=== PATIENT | female | born 1950 | race Caucasian/White ===

== ENCOUNTER 2016-10-20 17:32 | Inpatient (IN) | payer MEDICARE, OTHER ==
[~2016-10-20] VITALS: Ht 165.1 cm; Wt 79.4 kg
[2016-10-20] VITALS (7 sets, daily range): BP systolic 172–233; BP diastolic 77–108; PULSE 53–63; RESP 14–18; O2SAT 95–98
[~2016-10-20 17:32] MED LIST: ALBU8.5H4 IH; ASPI325T32 PO; ATEN25TA PO; CHOL100094 PO; FLUO20CA25 PO; GABA600T2 PO; HYDR25TA4 PO; IPRA4AER IH; METH750T3 PO; MORP-32 PO; OXYC-466 PO
[2016-10-20 18:20] LABS: BASOPHILS % (AUTO) 0.4 % (0-3); EOSINOPHILS % (AUTO) 2.1 % (0-5); MONOCYTES % (AUTO) 5.9 % (4-12); Mean Corpuscular Hemoglobin 30.6 pg (27.0-35.0); Mean Corpuscular Volume 90.4 fL (81-100); NEUTROPHILS % (AUTO) 65.5 % (40-74); Platelet Count 217 bil/L (150-400)
--- NOTE | 2016-10-20 18:25 | DRSVH ---
PROCEDURE: X-RAY CHEST ONE VIEW, PORTABLE ([id number]) INDICATIONS: chest pain TECHNIQUE: One view of the chest was acquired. COMPARISON: None. FINDINGS: Surgical changes and devices: Cervical fixation hardware is partially visualized and appears grossly intact. Lungs and pleura: No pleural effusions or pneumothorax. Lungs are clear. Mediastinum: Mediastinal contours appear normal. Heart size is normal. Bones and chest wall: No suspicious bony lesions. Overlying soft tissues appear unremarkable. IMPRESSION: No acute cardiopulmonary findings. Dictated by: Shelia Espinosa M.D. on 10/20/2016 at 18:23 Approved by: Shelia Espinosa M.D. on 10/20/2016 at 18:23
[2016-10-20 18:48] LABS: Magnesium 2.1 mg/dL (1.6-2.6)
[2016-10-20 18:51] LABS: TROPONIN T < 0.010 ug/L (0.0-0.011)
[2016-10-20] MEDS ORDERED: Nitroglycerin 2% 1 Gm Ointment TOPICAL ONE (20:30)
--- NOTE | 2016-10-20 20:31 | ED.REPORT ---
HPI-Chest Pain 40 and Over Date of Service Oct 20, 2016 ED Provider: Walter Whyte DO Pt is a 66 year old female with a history of HTN, COPD, and CVA who presents to the ED complaining of tight, non-radiating, chest pain onset 12:00 today. The pt reports that the pain lasted until 18:00. She c/o associated elevated blood pressure, and headache. She denies any other symptoms. The pt denies a history of chest pain, and reports that she has not had a stress test. She admits to smoking. Per pt, she determined that her blood pressure was 239/117 at 12:00. She took 81 mg of Aspirin prior to arrival. Nursing Notes Stated Complaint: CHEST TIGHTNESS, HIGH BLOOD PRESSURE Chief Complaint: Chest Pain Nursing Notes Reviewed: Yes Allergies: Coded Allergies: No Known Allergies (Unverified , 09/15/14) Scheduled Albuterol/Ipratropium (Combivent Respimat Inhal [place]) 120 Spr/4 Gm Inhaler 1 PUFF IH BID Aspirin (Aspirin) 325 Mg Tablet 325 MG PO HS Cholecalciferol (Vitamin D3) (Vitamin D3) 1,000 Unit Tab.chew 1,000 UNIT PO QAM Fluoxetine (Fluoxetine) 40 Mg Capsule 40 MG PO QAM Gabapentin (Gabapentin) 300 Mg Capsule 900 MG PO TID Hydrochlorothiazide (Hydrochlorothiazide) 25 Mg Tablet 25 MG PO QAM Losartan Potassium (Losartan Potassium) 50 Mg Tablet 50 MG PO QAM Metoprolol Succinate ER (Metoprolol Succinate ER) 200 Mg Tab.er.24h 200 MG PO QAM Morphine Sulfate ER (Morphine Sulfate ER) 15 Mg Tablet.er 30 MG PO QAM Morphine Sulfate ER (Morphine Sulfate ER) 15 Mg Tablet.er 15 MG PO HS Daily at 1900 Ropinirole (Ropinirole) 1 Mg Tablet 1 MG PO HS Scheduled PRN Albuterol HFA (Proair HFA) 8.5 Gm Hfa.aer.ad 2 PUFFS INHALATION Q4H PRN PRN For Shortness of Breath Methocarbamol (Methocarbamol) 750 Mg Tablet 750-1,500 MG PO Q8 PRN PRN For Spasm Nicotine 21 mg/24 hr Patch (Nicotine 21 mg/24 hr Patch) 1 Each Patch.dysq 1 PATCH TRANSDERM DAILY PRN PRN NICOTINE WITHDRAWAL Polyethylene Glycol 3350 (Polyethylene Glycol 3350) 17 Gm Powd.pack 17 GM PO DAILY PRN PRN For Constipation oxyCODONE-Acetaminophen 10-325 mg (oxyCODONE-Acetaminophen 10-325 mg) 1 Each Tablet 1 TABLET PO Q4H PRN PRN For Pain Max. 5 tablets/day General Time Seen by MD: 18:32 Chief Complaint Chest pain Hx Obtained From: Patient Arrived By: Walk-in Sudden in Onset?: No Onset Occurred: 5 - 8 hours ago Symptom Duration: 5 - 8 hours Location: : Substernal Quality: Painful Severity: Current: Moderate Severity: Maximum: Moderate Recent Healthcare: Recent doctor visit Similar Sx Previous: No Past Medical History Past Medical History Notes: PCP: Dr. Celeste Alva Past Medical History Low back pain Neck pain Neuropathy HTN CVA Apr 2014 COPD apnea degenerative disk disease arthritis endocarditis Past Surgical History multiple dental surgeries surgery for endocarditis Neck fusion Reports: Tonsillectomy Reports: Back/neck surgery Family History Reviewed, not relevant Smoking History Current Every Day Smoker Social History Alcohol Use: Denies alcohol use Drug Use: THC Other Social History: Good social support, , Local resident Ambulatory Status Independent Review of Systems Respiratory: Denies: Non-productive cough, Shortness of breath Cardiovascular: Reports: Chest pain Neurologic: Reports: Headache Complete sys rev & neg: except as marked. Physical Exam Initial Vital Signs Vital Signs (First) Date Time Temp Pulse Resp B/P Pulse Ox O2 Delivery O2 Flow Rate FiO2 10/20/16 17:37 36.6 63 15 207/92 97 Room Air Initial VS: Reviewed Head / Eyes: Atraumatic Neck: Supple, Full range of motion Extremities: Vascular intact, Neuro intact Skin: Warm, Dry, No cyanosis Neurologic: Alert, Oriented, Nonfocal Psychiatric: Mood/affect normal, Behavior normal General/Constitutional: Awake, Alert, Cooperative, Not toxic appearing Respiratory / Chest: Atraumatic, Breath sounds NL, Breath sounds = bilat Cardiovascular: Heart rate NL, Regular rhythm, Heart sounds NL Hypotensive Abdomen: Atraumatic, Soft, Non-tender Interpretation & Diagnostics Lab Results Interpretation Result Diagram: 10/20/16181210/20/161812 Test 10/20/16 18:13 White Blood Count 9.2th/mm3 (3.8-10.1) Red Blood Count 5.40mil/mm3 (3.90-5.20) Hemoglobin 16.5g/dL (12.0-15.6) Hematocrit 48.8% (35.0-46.0) Mean Corpuscular Volume 90.4fL (81-100) Mean Corpuscular Hemoglobin 30.6pg (27.0-35.0) Mean Corpuscular Hemoglobin Concent 33.8% (32.0-37.0) Red Cell Distribution Width 13.3% (12.3-15.4) Platelet Count 217bil/L (150-400) Neutrophils (%) (Auto) 65.5% (40-74) Lymphocytes (%) (Auto) 25.8% (14-46) Monocytes (%) (Auto) 5.9% (4-12) Eosinophils (%) (Auto) 2.1% (0-5) Basophils (%) (Auto) 0.4% (0-3) Sodium Level 141mEq/L (134-144) Potassium Level 4.0mEq/L (3.5-5.2) Chloride Level 97mEq/L (97-108) Carbon Dioxide Level 29mmol/L (18-29) Blood Urea Nitrogen 7mg/dL (8-27) Creatinine 0.55mg/dL (0.57-1.00) Estimat Glomerular Filtration Rate 159mL/min (>59) Glucose Level 124mg/dL (60-99) Calcium Level 9.9mg/dL (8.5-10.1) Magnesium Level 2.1mg/dL (1.6-2.6) Total Bilirubin 0.4mg/dL (0.0-1.2) Aspartate Amino Transf (AST/SGOT) 37U/L (0-50) Alanine Aminotransferase (ALT/SGPT) 43U/L (0-32) Alkaline Phosphatase 70U/L (25-165) Total Protein 8.1g/dL (6.4-8.4) Albumin 4.4g/dL (3.4-5.0) Hold Stallings Top Tube Received (Received) ECG Interpretation ECG Interpretation: Sinus rhythm with a rate of 58 Probable left atrial enlargement. Time: 17:48 Interpreted by: ED physician X-Ray Chest Interpretation Chest Xray Interpretation: IMPRESSION: No acute cardiopulmonary findings. Dictated by: Shelia Espinosa M.D. on 10/20/2016 at 18:23 View: Portable, 1 view Interpretation / Wet Read by: Interpret - Radiologist Re-Eval/Medical Decision Med Decision/Clinical Course Patient presents with markedly hypertension and associated chest pain. Her symptoms are not consistent with aortic dissection. She was treated with IV nitrates, IV MCKINLEY inhibitor and blood pressure came down nicely the pain was resolved. Taking to count her symptomatology and uncontrolled blood pressure from being admitted to progressive care unit for rule out protocol and good blood pressure management. Source of Hx: Old records Time of Eval: 19:00 Patient Status: Condition improved Re-Evaluation/Progress Note: Pt rechecked. Informed pt of plan for admission. Pt understands and agrees with plan for admission. All questions were answered. Consultation : Referral / Consult Name: Janet Valero DO Consulted With: Hospitalist Call Returned at: 22:58 Special Education Kindergarten Teacher: Will see patient, Agrees with eval, Agrees with plan, Accepts admit Counseled Regarding: Diagnosis, Lab results, Need for admission Discharge & Departure Primary Impression: Hypertensive emergency Additional Impression: Chest pain Chest pain type: unspecified Qualified Code: R07.9 - Chest pain, unspecified Disposition: ADMITTED TO HOSPITAL Discharge Condition All VS Reviewed: Yes Condition: Stable Referrals: Celeste Alva MD (PCP) Huma Attestation Portions of this note were transcribed by Marcie Gooden. I, Dr. Whyte personally performed the history, physical exam and medical decision-making; I reviewed and confirmed the accuracy of the information in the transcribed note. Signed by: Huma Monahan, 10/20/16 and 20:50. copies to: Celeste Alva MD, Todd P DO Oct 20, 2016 20:31 Marcie Gómez Oct 20, 2016 20:32
[2016-10-20] MEDS ORDERED: LOSA50TA37 PO (23:39)
[2016-10-20] MEDS ORDERED: ASPI325T32 PO (23:39)
[2016-10-20] MEDS ORDERED: ROPI1TAB3 PO (23:39)
[2016-10-20] MEDS ORDERED: CHOL10008 PO (23:40)
[2016-10-20] MEDS ORDERED: ALBU8.5H2 INHALATION (23:40)
[2016-10-20] MEDS ORDERED: GABA-502 PO (23:42)
[2016-10-20] MEDS ORDERED: METO200T32 PO (23:42)
[2016-10-20] MEDS ORDERED: FLUO40CA PO (23:43)
[2016-10-20] MEDS ORDERED: NICO1PAT16 TRANSDERM (23:43)
--- NOTE | 2016-10-20 23:43 | PCM.HPMED ---
Subjective Date of Service Oct 20, 2016 Primary Provider: Admitting Physician: Janet Valero DO Primary Care Physician: Celeste Alva MD Attending Physician: Janet Valero DO Admit Status: From the Emergency Department Chief Complaint: Headedness, Substernal Chest pain/tightness/high blood pressure History of Present Illness: Pt is a pleasant 66 Y/O Fwith a history of HTN, COPD, chronic neck and low back pain status post multiple surgical procedures and now chronically habituated on opiate medication, and history of tobacco use disorder, history of prior CVA in April 2014. Patient presented to the urgency department complaining of tight , non-radiating, chest pressure onset approximately 2:30 PM today. The pt reports that the pain lasted until 18:00. She states her initial symptoms began as a sensation of the onset of a migraine. Patient states she never actually had a headache however she did become lightheaded and felt foggy. Patient's chest pressure presented. Of note patient states that she has been falling out of bed for the past 6 months and does not know why. Of note patient is on multiple chronic opiate medications including oxycodone 10-325 milligrams morphine ER 30 mg in the morning and 15 mg at night as well as Flexeril. Patient states she was last seen by her primary care physician Dr. Alva on Wednesday. She endorses a history of whitecoat hypertension. She states that she was in the [facility] clinic today to be evaluated for a medical marijuana card given her chronic back pain issues. While at the [facility] clinic she was found to have an elevated blood pressure and was told to go to the ED. Patient states that she had blood pressure of 239 systolic at the [facility] clinic. She took a 81 mg aspirin at that time. In the ED patient's blood pressure were also in the 200s systolic. Patient was given a single dose of enalapril 1.25 milligrams IV. Draw her blood pressures down. Patient states that she is compliant on her blood pressure medications. She reports that she was at physical therapy on Wednesday and had been complaining of weakness in her lower extremity and dizziness since that time. Patient states that she often becomes dizzy and weak in the legs after physical therapy. Patient denies slurred speech, nausea, vomiting, vision changes, focal weakness, facial droop, recent increased social stressors. Patient never had a history of cardiac stress test. Patient denies prior history of chest pain. In the ED temperature was 36.6, pulse 63, respiratory rate 15, blood pressure 233/105, 95-97% on room air Patient was started on medication enalapril 1.25 milligrams IV once Patient was given aspirin 162 mg once Patient was given nitroglycerin paste 1 inch once with resolution of her chest pain. Hemogram showed the PVCs 9.2, H/H 16.5/48.8, platelet count 217, PMNs 65%, lymphs 25% Chemistry panel showed: Glucose 124, ALT of 43, AST of 37 otherwise normal. Chemistry panel Patient's troponin was 0.010, at 1813 on day of admit. CXR showed no acute cardiopulmonary process EKG was sinus rhythm with a rate of 58 and probable left atrial enlargement as read by the ED physician Review of Systems: A comprehensive review of systems was conducted and was negative except as mentioned in history of present illness. Allergies Coded Allergies: No Known Allergies (Unverified , 09/15/14) Home Medications Requip 1 mg tablet by mouth 1-3 hours before bedtime Losartan 50 mg tablet daily Fluoxetine 40 mg tablet daily for depression Qvar beclomethasone dipropionate, inhaled 2 puffs 2 times every day Combivent 36168 micrograms ipratropium albuterol inhaler inhale 1 by mouth 4 times daily Nicotine patch 21 mg daily for tobacco cessation Hydrochlorothiazide 25 mg daily Gabapentin 3 mg take 3 capsules by mouth 3 times daily Metoprolol succinate ER 200 mg tablet, take 1 tablet daily Aspirin 325 mg daily Vitamin D 1000 units daily Methocarbamol 1-2 tablets every 8 hours as needed for muscle spasm Morphine ER 15 mg takes 2 tablets by mouth every morning, and 1 tablet every evening Percocet 10/325 mg tablets 1 tablet every 4 hours Max 5 tablets per day when necessary MiraLAX 17 g by mouth a analysis water when necessary PMH PCP: Dr. Celeste Alva Low back pain Neck pain Neuropathy HTN CVA Apr 2014 COPD apnea degenerative disk disease arthritis endocarditis Surgical History multiple dental surgeries surgery for endocarditis Neck fusion Reports: Tonsillectomy Reports: Back/neck surgery Family History Mom with coronary artery disease, history of A. fib, and stroke now Social History Hx Alcohol Use: No Hx Substance Use: Yes (WEED) Hx Tobacco Use: Yes Smoking Status: Current Every Day Smoker (smoked half a pack per day 52 years) Living Arrangement: with Family (this with Xu at home phone number [phone]) Exam Vital Signs Vital Sign - Last Date Time Temp Pulse Resp B/P Pulse Ox O2 Delivery O2 Flow Rate FiO2 10/20/16 23:02 54 18 172/101 95 Room Air 10/20/16 17:37 36.6 Exam General: Alert and oriented 3, speaking in full sentences, in no acute distress , resting comfortably in bed. HEENT: NC/AT, eyes, PERRLA, EOMI, neck, soft supple, no adenopathy, no JVD, no masses, no thyromegaly, throat mucous membranes pink and moist, no erythema, no exudates, no tonsillar swelling, no uvular deviation. Patient is edentulous Lungs: Bilateral crackles present from midlung field to base bilaterally no use of accessory muscles of respiration, good air movement, good respiratory effort. Heart: Regular rate and rhythm, no murmur, S1-S2 present, no rub, no click, no distant heart sounds, Abdomen: Soft, nontender, nondistended, bowel sounds active, no rebound, no guarding, Genitourinary: no suprapubic tenderness, no Chambers catheter, Extremities: Muscle strength, 5 out of 5 upper/lower extremity and symmetric laterally, pulses equal and symmetric upper/lower extremity, upper extremity pulses bounding, signs of edema Neurologic: Cranial nerves II through XII Grossly intact bilaterally, speaking in full sentences, no focal neurological signs. Skin: Dry and intact without rash, nicotine stains on the fingers Psychiatric: Mood is cheerful and mood and affect are congruent and appropriate. Lab and Diagnostics Result Diagram: 10/20/16181210/20/161812 X-Rays, CTs and MRIs Date of Service: 10/20/16 1740 PROCEDURE: X-RAY CHEST ONE VIEW, PORTABLE INDICATIONS: chest pain Surgical changes and devices: Cervical fixation hardware is partially visualized and appears grossly intact. Lungs and pleura: No pleural effusions or pneumothorax. Lungs are clear. Mediastinum: Mediastinal contours appear normal. Heart size is normal. Bones and chest wall: No suspicious bony lesions. Overlying soft tissues appear unremarkable. IMPRESSION: No acute cardiopulmonary findings. Dictated by: Shelia Espinosa M.D. on 10/20/2016 at 18:23 Approved by: Shelia Espinosa M.D. on 10/20/2016 at 18:23 Assessment & Plan This is a pleasant 66-year-old female history of hypertension COPD and prior history of CVAs who presented with acute onset hypertensive emergency and lightheadedness to the ED. Patient was admitted for acute hypertensive emergency and acute coronary syndrome rule out. # Acute Coronary Syndrome/OR, Present on Admission -Presented with acute onset substernal chest pressure and tightness since 1200 hrs. today on day of admit. -Patient was given aspirin 162 mg once -Patient was given nitroglycerin paste 1 inch once with resolution of her chest pain. -Hemogram showed the WBC 9.2, H/H 16.5/48.8, platelet count 217, PMNs 65%, lymphs 25% -Chemistry panel showed: Glucose 124, ALT of 43, AST of 37 otherwise normal. Chemistry panel -CXR showed no acute cardiopulmonary process -EKG was sinus rhythm with a rate of 58 and probable left atrial enlargement as read by the ED physician -Troponin 0.010 in the ED, we will repeat troponins 2 -Stress testing in the a.m. -O2 Sats keep > 94% -IV fluids as needed -Start Metoprolol -Start Lisinopril -Type medication Atorvastatin -Morphine for pain control -Nitro SL, Nitro Cle[place], Nitro Paste (PRN) -Aspirin 325mg -Continuous Cardiac Monitoring/BP monitoring -Labs (Lipid Panel, CBC, CMP, PT/PTT/INR) -Milk of magnesia as, IV Protonix rated -NPO for now # Hypertensive emergency, present on admission, active - She reports elevated blood pressure with associated headache and chest pain - Patient states that she took her blood pressure home and was 239/117 at 12 noon today, patient took a 81 mg aspirin prior to presentation to the ED. - In the ED temperature was 36.6, pulse 63, respiratory rate 15, blood pressure 233/105, 95-97% on room air - We will continue home medications Losartan 50 mg tablet daily - Continue home medication Metoprolol succinate ER 200 mg tablet, take 1 tablet daily - Continue home medication Hydrochlorothiazide 25 mg daily - Patient was given enalaprilat 1.25 mg once in the ED - We will repeat enalaprilat 1.25 mg now and every 6 hours when necessary for blood pressure control with threshold of 180 greater systolic - We will lower her blood pressure cautiously being careful not to over correct - We will plan to transfer patient to ccu status or blood pressure control with IV drip if blood pressure continues to increase despite current medical intervention Chronic problems # Current tobacco smoker -Continue Nicotine patch 21 mg daily for tobacco cessation #Chronic neck and Low back pain, presumed stable -Patient has history of degenerative disc disease -Methocarbamol 1-2 tablets every 8 hours as needed for muscle spasm -Morphine ER 15 mg takes 2 tablets by mouth every morning, and 1 tablet every evening -Percocet 10/325 mg tablets 1 tablet every 4 hours Max 5 tablets per day when necessary #HTN Home medications continued as previously stated #History of CVA Apr 2014 #COPD Continue home medication Qvar beclomethasone dipropionate, inhaled 2 puffs 2 times every day Combivent ipratropium albuterol inhaler inhale 1 by mouth 4 times daily #Depression -Continue Fluoxetine 40 mg tablet daily for depression #Sleep apnea -Currently compliant on her CPAP #arthritis #History of endocarditis, presumed stable #Neuropathic pain - Continue Gabapentin 3 mg take 3 capsules by mouth 3 times daily - Requip 1 mg tablet by mouth 1-3 hours before bedtime Disposition: Admitted to in patient service with expected length of stay greater than 2 days, secondary to severity of presenting symptoms, treatment plan, complexity of clinical work up, and risk of adverse events. CODE STATUS: Full code PCP: PCP: Dr. Celeste Alva DVT PE prophylaxis: SCD's/SubQ heparin Q8H Contact: Xu [phone] Attending Statement The patient was seen and examined together with house staff on 10/21/2016 and I agree with the history, exam and plan as outlined in the note above. Merlin Baker DO Oct 20, 2016 23:43 Janet Valero DO Oct 21, 2016 04:19
[2016-10-20] MEDS ORDERED: POLY17PO2 PO (23:44)
[2016-10-21] VITALS (14 sets, daily range): BP systolic 132–223; BP diastolic 67–100; PULSE 54–73; RESP 14–20; O2SAT 92–98
[2016-10-21] MEDS ORDERED: Alum-Mag Hydrox-Simeth 30 mL Suspension PO PRN
[2016-10-21] MEDS ORDERED: Senna-Docusate 8.6-50 mg Tablet PO PRN
[2016-10-21] MEDS ORDERED: Ondansetron 2 mg/mL 2 mL Inj IVPUSH PRN
[2016-10-21] MEDS ORDERED: 0.9% Sodium Chloride 1,000 ML IV SCH
[2016-10-21] MEDS: Sodium Chloride LOK Flush 10 mL Syringe IVFLUSH SCH ×3 (01:05→15:43)
[2016-10-21] MEDS ORDERED: Polyethylene Glycol (PEG) 17 Gm Powder PO PRN ×2 (01:20)
[2016-10-21] MEDS ORDERED: oxyCODONE-Acetamin 10-325 mg Tablet PO PRN (01:20)
--- NOTE | 2016-10-21 02:45 | NUR ---
Admit to room 3017 @00:30 with Hypertension. A&Ox3, pain /10, VS 36.7temp 197/90 54p, O2 sat 95% on RA. Oriented to room and POC on whiteboard. Non-slip socks on for safety, RADHA risk with broken cpap at home, future sleep study planned in October and upgrade to new CPAP machine. Cpox and scd's on patient.
--- NOTE | 2016-10-21 04:14 | NUR ---
O2 Saturation desat <90% during sleep, placed on 1L O2 will continue to monitor. O2 saturation currently 95%.
--- NOTE | 2016-10-21 04:43 | NUR ---
Transfer to room 2018 via bed, all belongings accounted for, report given to Yasemin Vera @04:30.
[2016-10-21 04:52] LABS: APPEARANCE,URINE SLIGHTLY CLOUDY (CLEAR,HAZY); COLOR,URINE YELLOW (YELLOW)
[2016-10-21 04:53] LABS: OCCULT BLOOD,URINE TRACE (NEGATIVE); UROBILINOGEN,URINE NORMAL (NORMAL)
[2016-10-21] MEDS: NiCARdipine Inj 25 MG in Dextrose 5% 240 ML IV SCH ×4 (05:22→19:25)
--- NOTE | 2016-10-21 06:17 | NUR ---
Transferred from [facility] to CCU 2017. A/O. c/o ARGUELLO 07/03. Denies dyspnea, N/V. Tele SB. BP 200s/80-100s. Starting nicardipine drip.
[2016-10-21] MEDS: oxyCODONE-Acetamin 10-325 mg Tablet PO PRN ×2 (06:24→11:56)
[2016-10-21 08:10] LABS: TROPONIN T < 0.010 ug/L (0.0-0.011)
[2016-10-21] MEDS ORDERED: MeTOProlol XL 50 mg ER24 Tablet PO SCH (08:30)
[2016-10-21] MEDS: Morphine ER 15 mg (MS Contin) Tablet PO SCH (08:38)
[2016-10-21] MEDS: Heparin 5,000 Unit/mL Inj SUBQ SCH ×2 (08:39→15:39)
[2016-10-21] MEDS: MeTOProlol XL 50 mg ER24 Tablet PO SCH (09:50)
--- NOTE | 2016-10-21 14:49 | PCM.PNMED ---
Subjective Date of Service Oct 21, 2016 Subjective Overnight the patient was transferred to the ICU due to the need for a nicardipine drip to control her blood pressure as it was in the 200's systolic and 80-100 diastolic. This morning the patient is lying in bed in no acute distress and her BP is responding to the nicardipine drip. She reports feeling better than yesterday and denies any headache, dizziness, sore throat, chest pain, nausea. She is ambulating around her room without difficulty. Exam Vital Signs Vital Sign - Last Date Time Temp Pulse Resp B/P Pulse Ox O2 Delivery O2 Flow Rate FiO2 10/21/16 12:56 37.5 73 20 147/96 95 Nasal Cannula 2.00 Intake and Output 10/20/16 10/20/16 10/21/16 Cumulative From/Thru 15:00 23:00 07:00 10/20/16 17:37 - 10/21/16 06:16 Intake Total 363 ml 363 ml Output Total 850 ml 850 ml Balance -487 ml -487 ml Intake IV Total 363 ml 363 ml Output Urine Total 850 ml 850 ml # Voids 2 2 # Bowel Movements 0 0 Exam General: No acute distress, well-developed, well-nourished, appropriately interactive HEENT: NCAT. PERRLA, EOMI. Mucous membranes are pink and moist Neck: Supple with full ROM. No JVD, lymphadenopathy or thyromegaly noted Cardiovascular: RRR with no murmurs/rubs/gallops. Normal S1/S2 without rubs or clicks. Pulmonary: Normal inspiratory effort with intermittent crackles at the lung bases bilaterally. No wheezing/rales/rhonchi Abdomen: Soft, nontender, nondistended. No rebound, guarding, or organomegaly. Bowel sounds present throughout Extremities: Pulses intact and normal bilaterally in both UE and LE, no cyanosis /clubbing. Skin: Dry without rashes or bruising, fingers stained from nicotine use Neurological: A&Ox3. CN 2-12 intact, full muscle strength in all extremities. Left digits 1-3 numb from previous CVA Psychiatric: Normal mood and affect, responds appropriately IVs and Medications Medications Reviewed: Medications were reviewed in detail Lab and Diagnostics Result Diagram: 10/20/16181210/20/161812 X-Rays, CTs and MRIs Date of Service: 10/20/16 1740 PROCEDURE: X-RAY CHEST ONE VIEW, PORTABLE INDICATIONS: chest pain Surgical changes and devices: Cervical fixation hardware is partially visualized and appears grossly intact. Lungs and pleura: No pleural effusions or pneumothorax. Lungs are clear. Mediastinum: Mediastinal contours appear normal. Heart size is normal. Bones and chest wall: No suspicious bony lesions. Overlying soft tissues appear unremarkable. IMPRESSION: No acute cardiopulmonary findings. Dictated by: Shelia Espinosa M.D. on 10/20/2016 at 18:23 Approved by: Shelia Espinosa M.D. on 10/20/2016 at 18:23 Assessment & Plan This is a pleasant 66-year-old female history of hypertension COPD and prior history of CVAs who presented with acute onset hypertensive emergency and lightheadedness to the ED. Patient was admitted for acute hypertensive emergency and acute coronary syndrome rule out. Acute Coronary Syndrome/MT, Present on Admission, improved -Patient reports chest pain resolved last night -CXR negative -EKG was sinus rhythm with a rate of 58 and probable left atrial enlargement -Troponin negative x2, one more ordered for AM -Consider cardiology consult as outpatient as her chest pain has resolved ( negative troponin, no EKG changes) with better BP control Hypertensive emergency, present on admission, resolved - Cessation of chest pain when BP is not elevated - Pt weaned off nicardipine drip this morning, maintaining pressures in the 140- 150 -Changes to her home HTN regimen are as follows: HCTZ from 25mg to 12.5mg Losartan to 100mg from 50mg Metoprolol from 200mg from 100mg Added amlodipine 5mg -Will continue to monitor BP overnight HTN, chronic, present on admission, improved -Continue adjusted home regimen as above History of CVA in 04/2014 -Lipid panel reveals high LDL (129) and total cholesterol (210) -Continue Atorvastatin 40mg qHS COPD, present on admission, stable -Continue Qvar and Combivent inhalers Tobacco Use Disorder, present on admission, stable -Current half pack per day smoker -Continue Nicotine patch 21 mg daily -Counseled on cessation options and benefits Chronic neck and Low back pain, present on admission, stable -Patient has history of degenerative disc disease, neck fusion -Continue home regimen as follows: Methocarbamol 1-2 tablets every 8 hours as needed for muscle spasm Morphine ER 15 mg takes 2 tablets by mouth every morning, and 1 tablet every evening Percocet 10/325 mg tablets 1 tablet every 4 hours Max 5 tablets per day when necessary Depression -Continue Fluoxetine 40 mg tablet daily for depression Sleep apnea -Currently compliant on her CPAP #arthritis #History of endocarditis, presumed stable #Neuropathic pain - Continue Gabapentin 3 mg take 3 capsules by mouth 3 times daily - Requip 1 mg tablet by mouth 1-3 hours before bedtime Disposition: Patient likely ready for discharge home in 1-2 days dependent on the responsiveness of her blood pressure to the current treatment plan. It may be beneficial to have her see her PCP as soon as she can for a full medication review in an attempt to prevent the dizzy spells in the morning when at home. Pain Evaluation: Adequate Pain Control VTE Mechanical Devices: Intermittant Pneumatic CD Attending Statement The patient was seen and examined together with Dr. Clay on 10/21/2016 and I agree with the history, exam and plan as outlined in the note above. . copies to: Celeste Alva MD, Jeffery S DO Oct 21, 2016 14:48 Roger Hinojosa MD Oct 23, 2016 05:57 #History of endocarditis, presumed stable #Neuropathic pain - Continue Gabapentin 3 mg take 3 capsules by mouth 3 times daily - Requip 1 mg tablet by mouth 1-3 hours before bedtime Disposition: Admitted to in patient service with expected length of stay greater than 2 days, secondary to severity of presenting symptoms, treatment plan, complexity of clinical work up, and risk of adverse events. CODE STATUS: Full code PCP: PCP: Dr. Celeste Alva DVT PE prophylaxis: SCD's/SubQ heparin Q8H Contact: Xu [phone] VTE Mechanical Devices: Intermittant Pneumatic CD Ronaldo Clay DO Oct 21, 2016 14:48
--- NOTE | 2016-10-21 15:18 | NUR ---
Social Work Note: Initial Assessment Data& Assessment: EMR reviewed. SW met with pt and pt at bedside to discuss discharge planning, SW role explained. Gina Monzon is a 66 year old female admitted on 10/20/2016 for hypertensive emergency and chest pain. Pt has Medicare insurance coverage and sees Celeste Alva MD for primary care. Pt lives in [place] with her spouse and is independent at baseline with all ADL's. Pt owns a wheelchair, walker and cane that used to belong to her mother, but only uses the cane when she feels dizzy. Pt does not have HH hx. Pt has been to a SNF for IV abx in the . Pt drives. Pt does not have LTC insurance or VA benefits. Pt provided with DPOA/Advance Directive paperwork to review and complete when possible. Pt to transport pt home when medically ready. Pt and pt denies any needs at this time. SW to continue to follow. Plan: Anticipated discharge home via POV when medically ready. Pt and pt denies any needs at this time. SW to continue to follow. ROSALINE Christian Addendum: 10/21/16 at 1522 by ABIGAIL HAWK Amended: Links added.
--- NOTE | 2016-10-21 16:47 | NUR ---
nicardipine off/plan/o2/BM/pain nicardipine off at 1000, pt loly well. MD's are adjusting po antihypertensives. Tolerating 2L NC well, uses 2L at home. XXL formed BM today. Pt required only one dose of prn pain medication today. Addendum: 10/21/16 at 1913 by PRISCILLA FERNANDO RN 1800 pt transfered to [facility]
[2016-10-21] MEDS ORDERED: Morphine ER 15 mg (MS Contin) Tablet PO SCH (21:00)
[2016-10-21] MEDS ORDERED: hydrALAZINE 20 mg/mL Inj IV ONE (23:25)
[2016-10-22] VITALS (8 sets, daily range): BP systolic 125–195; BP diastolic 63–86; PULSE 73–80; RESP 16–22; O2SAT 93–98
[2016-10-22] MEDS ORDERED: NiCARdipine Inj 25 MG in Dextrose 5% 240 ML IV SCH (00:25)
[2016-10-22] MEDS: Sodium Chloride LOK Flush 10 mL Syringe IVFLUSH SCH ×2 (00:30→13:29)
[2016-10-22] MEDS: Heparin 5,000 Unit/mL Inj SUBQ SCH ×3 (00:35→13:37)
--- NOTE | 2016-10-22 00:40 | NUR ---
BP 130-160 systolic beginning of this shift, BP gemma to 180's-200's systolic. Hydralazine 10 mg IVP given x1 with ineffective results. Per MD, pt to restart nicardipine drip, transfer orders to CCU received and report given to RN by this comic book writer.
[2016-10-22] MEDS: NiCARdipine Inj 25 MG in Dextrose 5% 240 ML IV SCH ×3 (01:04→10:25)
[2016-10-22] MEDS: oxyCODONE-Acetamin 10-325 mg Tablet PO PRN ×2 (01:17→08:26)
[2016-10-22 03:15] LABS: BASOPHILS % (AUTO) 0.5 % (0-3); EOSINOPHILS % (AUTO) 1.6 % (0-5); MONOCYTES % (AUTO) 6.6 % (4-12); Mean Corpuscular Hemoglobin 30.3 pg (27.0-35.0); Mean Corpuscular Volume 89.9 fL (81-100); NEUTROPHILS % (AUTO) 65.9 % (40-74); Platelet Count 202 bil/L (150-400)
[2016-10-22 04:29] LABS: TROPONIN T 0.01 ug/L (0.0-0.011)
--- NOTE | 2016-10-22 04:46 | NUR ---
P: SBP 190-200s I: nicardipine drip E: Transferred from PCU status to CCU at 0030 to restart nicardipine drip. Nicardipine starting at 5mg/hr per protocol and now at 2mg/hr w/ SBP 120-140s. Tele SR. A/O. c/o mid back pain, 10/03. Percocet resolved pain. c/o dry mouth. Encourage use of mouth moisturizer. Exertional dyspnea when up to BSC. 2L NC to keep sats > 92% when dozing. Dose for period of time now watching tv.
[2016-10-22] MEDS: Morphine ER 15 mg (MS Contin) Tablet PO SCH (08:28)
[2016-10-22] MEDS: MeTOProlol XL 50 mg ER24 Tablet PO SCH (08:30)
--- NOTE | 2016-10-22 13:33 | PCM.DIMED ---
Ronaldo Clay DO 10/22/16 1333: Discharge Instructions Date of Service Oct 22, 2016 Dates of Hospitalization Oct 20, 2016 at 23:20 Discharge Diagnosis Discharge Diagnosis Acute Coronary Syndrome/IA Hypertensive emergency HTN History of CVA in 04/2014 COPD Tobacco Use Disorder Chronic neck and Low back pain Depression Sleep apnea Neuropathic pain Medication Instructions Additional med instructions Your blood pressure medications are as follows: Take your HCTZ 12.5mg and 100mg metoprolol in the mornings. Take your amlodipine 5mg, losartan 100mg, and 100mg metoprolol at night. Follow up with Dr. Alva with the recordings of your blood pressure cuff within the next week. Diet Discharge Diet: Low fat, Low Sodium Activity Discharge Activity: No restrictions Call your provider Call your provider for: Shortness of breath, Bleeding, Chest pain, Weakness ( unilateral), Other (vision changes, dizziness, lightheadedness) Patient Instructions Patient Instructions Take your new blood pressure regimen outlined above. Follow up with Dr. Alva within a week with your blood pressure results to see if further changes need to be made. Follow-up Provider: Celeste Alva MD Follow-up with PCP in: 1 week (BP check, possible HTN regimen change) Roger Hinojosa MD 10/23/16 0557: Discharge Instructions Attending's Statement The patient was seen and examined together with Dr. Clay on 10/22/2016 and I agree with the history, exam and plan as outlined in the note above. . Ronaldo Clay DO Oct 22, 2016 13:33 Roger Hinojosa MD Oct 23, 2016 05:57
[2016-10-22] MEDS ORDERED: LOSA50TA3 PO (13:43)
[2016-10-22] MEDS ORDERED: HYDR25TA4 PO (13:43)
[2016-10-22] MEDS ORDERED: METO100T3 PO (13:43)
[2016-10-22] MEDS ORDERED: AMLO5TAB2 PO (13:43)
--- NOTE | 2016-10-22 13:45 | NUR ---
Discharge Discharged in satisfactory status with VVS, A&Ox3, steady on feet. IV dcd intact. Discharge instructions, prescriptions reviewed in detail w/ pt & Spouse; all belongings in care of Spouse. To waiting vehicle via w/c, accompanied by [facility] staff & Spouse.
--- NOTE | 2016-10-22 13:52 | NUR ---
Improving status BP currently 153/82, HR 73, sinus rhythm. A&Ox3, pleasant 7 cooperative. Currently states is free of chronic back-neck pain, after percocet & MS Contin.
--- NOTE | 2016-10-22 15:35 | PCM.DC.MED ---
Discharge Summary Date of Service Oct 22, 2016 Dates of Hospitalization Date of Hospital Admission Oct 20, 2016 at 23:20 Date of Discharge: Oct 22, 2016 Providers: Admitting Physician: Roger Hinojosa MD Primary Care Physician: Celeste Alva MD Attending Physician: Roger Hinojosa MD Diagnosis at Time of Discharge Diagnosis at Time of Discharge Acute Coronary Syndrome/MT Hypertensive emergency HTN History of CVA in 04/2014 COPD Tobacco Use Disorder Chronic neck and Low back pain Depression Sleep apnea Neuropathic pain Procedures XRay, CTs & MRIs Date of Service: 10/20/16 1740 PROCEDURE: X-RAY CHEST ONE VIEW, PORTABLE INDICATIONS: chest pain Surgical changes and devices: Cervical fixation hardware is partially visualized and appears grossly intact. Lungs and pleura: No pleural effusions or pneumothorax. Lungs are clear. Mediastinum: Mediastinal contours appear normal. Heart size is normal. Bones and chest wall: No suspicious bony lesions. Overlying soft tissues appear unremarkable. IMPRESSION: No acute cardiopulmonary findings. Dictated by: Shelia Espinosa M.D. on 10/20/2016 at 18:23 Approved by: Shelia Espinosa M.D. on 10/20/2016 at 18:23 Brief History Pt is a pleasant 66 Y/O Fwith a history of HTN, COPD, chronic neck and low back pain status post multiple surgical procedures and now chronically habituated on opiate medication, and history of tobacco use disorder, history of prior CVA in April 2014. Patient presented to the urgency department complaining of tight , non-radiating, chest pressure onset approximately 2:30 PM today. The pt reports that the pain lasted until 18:00. She states her initial symptoms began as a sensation of the onset of a migraine. Patient states she never actually had a headache however she did become lightheaded and felt foggy. Patient's chest pressure presented. Of note patient states that she has been falling out of bed for the past 6 months and does not know why. Of note patient is on multiple chronic opiate medications including oxycodone 10-325 milligrams morphine ER 30 mg in the morning and 15 mg at night as well as Flexeril. Patient states she was last seen by her primary care physician Dr. Alva on Wednesday. She endorses a history of whitecoat hypertension. She states that she was in the [facility] clinic today to be evaluated for a medical marijuana card given her chronic back pain issues. While at the [facility] clinic she was found to have an elevated blood pressure and was told to go to the ED. Patient states that she had blood pressure of 239 systolic at the [facility] clinic. She took a 81 mg aspirin at that time. In the ED patient's blood pressure were also in the 200s systolic. Patient was given a single dose of enalapril 1.25 milligrams IV. Draw her blood pressures down. Patient states that she is compliant on her blood pressure medications. She reports that she was at physical therapy on Wednesday and had been complaining of weakness in her lower extremity and dizziness since that time. Patient states that she often becomes dizzy and weak in the legs after physical therapy. Patient denies slurred speech, nausea, vomiting, vision changes, focal weakness, facial droop, recent increased social stressors. Patient never had a history of cardiac stress test. Patient denies prior history of chest pain. The patient was admitted but was moved to the ICU due to increasing blood pressures that required a nicardipine drip overnight. Her BP improved and the nicardipine drip was weaned off, with her IV medications changed to PO as she transitioned out of the ICU. She maintained acceptable BP throughout the day with her changed BP regimen (HCTZ 25 --> 12.5mg, Losartan 50 --> 100mg, Metoprolol 200 --> 100 due to bradycardia, added amlodipine 5 mg). During the night however her BP spiked again with no response to IV hydralazine and she was put back into the ICU on the nicardipine drip. After her BP fell to a more appropriate level, she was again transitioned to the above PO regimen with plans to discharge with close follow up. Her brought her a BP cuff and she will do twice daily reads on her new regimen and follow up with her PCP within a week. Hospital Course This is a pleasant 66-year-old female history of hypertension COPD and prior history of CVAs who presented with acute onset hypertensive emergency and lightheadedness to the ED. Patient was admitted for acute hypertensive emergency and acute coronary syndrome rule out. Chest pain, present on admission. Resolved. -Likely secondary to hypertensive urgency -Patient reports chest pain resolved -CXR negative -EKG was sinus rhythm with a rate of 58 and probable left atrial enlargement -Troponin negative x3 -Primary to consider cardiology consult as outpatient as her chest pain has resolved (negative troponin, no EKG changes) with better BP control Hypertensive urgency, present on admission, resolved - No of chest pain when BP is not elevated - Pt weaned off nicardipine drip morning of discharge (10/22/2016), maintaining pressures in the 140-150 -Changes to her home HTN regimen are as follows: HCTZ from 25mg to 12.5mg Losartan to 100mg from 50mg to take at night Metoprolol from 200mg from 100mg, one in the morning and one in the evening Added amlodipine 5mg in the evening -Patient bought blood pressure cuff and will keep readings when following up with primary care doctor HTN, chronic, present on admission, improved -Continue adjusted home regimen as above -Has follow up appointment with PCP and blood pressure cuff to determine need for further medication changes History of CVA in 04/2014 -Lipid panel reveals high LDL (129) and total cholesterol (210) -Continue Atorvastatin 40mg qHS COPD, present on admission, stable -Continue Qvar and Combivent inhalers Tobacco Use Disorder, present on admission, stable -Current half pack per day smoker -Continue Nicotine patch 21 mg daily -Counseled on cessation options and benefits, especially in regards to her blood pressure issues Chronic neck and Low back pain, present on admission, stable -Patient has history of degenerative disc disease, neck fusion -Continue home regimen as follows: Methocarbamol 1-2 tablets every 8 hours as needed for muscle spasm Morphine ER 15 mg takes 2 tablets by mouth every morning, and 1 tablet every evening Percocet 10/325 mg tablets 1 tablet every 4 hours Max 5 tablets per day when necessary -Primary care doctor to consider spreading regimen out due to lightheadedness in the AM if the above blood pressure regimen doesn't address it Depression, stable -Continue Fluoxetine 40 mg tablet daily for depression Sleep apnea, stable -Continue CPAP use Arthritis, stable - Continue above chronic pain regimen Neuropathic pain - Continue Gabapentin 3 mg take 3 capsules by mouth 3 times daily - Requip 1 mg tablet by mouth 1-3 hours before bedtime History of endocarditis, stable - Pt denies signs/symptoms of endocarditis (fever, chills, new murmur) and her exam is negative for any overt signs (lowery spots, splinter hemorrhages, janeway/ osler nodes) Disposition: Patient discharged in stable and improved condition. Both the patient and her understand the new blood pressure regimen and how to use her blood pressure cuff. They will see Dr. Alva and continue to work on her BP issues, but are counseled on the risks and events that would require her to return to the hospital. Exam Vital Signs (Last) Date Time Temp Pulse Resp B/P Pulse Ox O2 Delivery O2 Flow Rate FiO2 10/22/16 13:39 36.9 80 16 153/82 98 10/22/16 12:03 Room Air 10/22/16 04:30 2.00 Exam General: No acute distress, well-developed, well-nourished, appropriately interactive HEENT: NCAT. PERRLA, EOMI. Mucous membranes are pink and moist Neck: Supple with full ROM. No JVD, lymphadenopathy or thyromegaly noted Cardiovascular: RRR with no murmurs/rubs/gallops. Normal S1/S2 without rubs or clicks. Pulmonary: Normal inspiratory effort with intermittent crackles at the lung bases bilaterally. No wheezing/rales/rhonchi Abdomen: Soft, nontender, nondistended. No rebound, guarding, or organomegaly. Bowel sounds present throughout Extremities: Pulses intact and normal bilaterally in both UE and LE, no cyanosis /clubbing. Skin: Dry without rashes or bruising, fingers stained from nicotine use Neurological: A&Ox3. CN 2-12 intact, full muscle strength in all extremities. Left digits 1-3 numb from previous CVA Psychiatric: Normal mood and affect, responds appropriately Test 10/20/16 18:13 10/21/16 00:32 10/21/16 04:30 10/21/16 06:58 Magnesium Level 2.1mg/dL (1.6-2.6) Hold [place]allings Top Tube Received (Received) Hemoglobin A1c 6.0% (4.8-5.6) Thyroid Stimulating Hormone (TSH) 0.635uIU/mL (0.450-4.500) Urine Color Yellow (YELLOW) Urine Appearance Slightly cloudy Urine pH 8.0 (5.0-8.0) Urine Specific [place] 1.010 (1.003-1.035) Urine Protein Negativemg/dL (NEG,TRACE) Urine Glucose (UA) Negativemg/dL (NEGATIVE) Urine Ketones Negativemg/dL (NEGATIVE) Urine Occult Blood Trace (NEGATIVE) Urine Nitrite Negative (NEGATIVE) Urine Bilirubin Negative (NEGATIVE) Urine Urobilinogen Normalmg/dL (NORMAL) Urine Leukocyte Esterase Negative (NEGATIVE) Urine RBC 0-2/hpf (0-2) Urine WBC 0-5/hpf (0-5) Urine Epithelial Cells Few/hpf (NONE-MOD) Urine Crystals Amorphous phosphates Urine Bacteria None/hpf (NONE-FEW) Urine Hyaline Casts None/lpf (NONE) Urine Granular Casts None seen (NONE SEEN) Urine Waxy Casts None seen (NONE SEEN) Urine Red Blood Cell Casts None seen (NONE SEEN) Urine White Blood Cell Casts None seen (NONE SEEN) Urine Mucus Present (None Seen) Urine Trichomonas None seen (NONE SEEN) Urine Yeast None (NONE SEEN) Urinalysis Comment None Urine Culture Reflexed Not indicated Hold Urine Received (Received) Triglycerides Level 132mg/dL (0-149) Cholesterol Level 210mg/dL (100-199) LDL Cholesterol, Calculated 129.600mg/dL (0-99) VLDL Cholesterol 26.400mg/dL HDL Cholesterol 54mg/dL (>39) Cholesterol/HDL Ratio 3.89 (0.0-4.4) Test 10/22/16 03:05 White Blood Count 8.8th/mm3 (3.8-10.1) Red Blood Count 5.64mil/mm3 (3.90-5.20) Hemoglobin 17.1g/dL (12.0-15.6) Hematocrit 50.7% (35.0-46.0) Mean Corpuscular Volume 89.9fL (81-100) Mean Corpuscular Hemoglobin 30.3pg (27.0-35.0) Mean Corpuscular Hemoglobin Concent 33.7% (32.0-37.0) Red Cell Distribution Width 13.5% (12.3-15.4) Platelet Count 202bil/L (150-400) Neutrophils (%) (Auto) 65.9% (40-74) Lymphocytes (%) (Auto) 25.1% (14-46) Monocytes (%) (Auto) 6.6% (4-12) Eosinophils (%) (Auto) 1.6% (0-5) Basophils (%) (Auto) 0.5% (0-3) Sodium Level 137mEq/L (134-144) Potassium Level 3.7mEq/L (3.5-5.2) Chloride Level 98mEq/L (97-108) Carbon Dioxide Level 22mmol/L (18-29) Blood Urea Nitrogen 12mg/dL (8-27) Creatinine 0.46mg/dL (0.57-1.00) Estimat Glomerular Filtration Rate 195mL/min (>59) Glucose Level 161mg/dL (60-99) Calcium Level 9.3mg/dL (8.5-10.1) Total Bilirubin 0.7mg/dL (0.0-1.2) Aspartate Amino Transf (AST/SGOT) 33U/L (0-50) Alanine Aminotransferase (ALT/SGPT) 41U/L (0-32) Alkaline Phosphatase 64U/L (25-165) Troponin T 0.010ug/L (0.0-0.011) Total Protein 7.6g/dL (6.4-8.4) Albumin 4.2g/dL (3.4-5.0) Discharge Medications Discharge Medications Albuterol/Ipratropium (Combivent Respimat Inhal [place]) 120 Spr/4 Gm Inhaler 1 PUFF IH BID (Reported) Amlodipine (Amlodipine) 5 Mg Tablet 5 MG PO DAILY Prescribed by: DOMINIK FIGUEROA DO Aspirin (Aspirin) 325 Mg Tablet 325 MG PO HS (Reported) Cholecalciferol (Vitamin D3) (Vitamin D3) 1,000 Unit Tab.chew 1,000 UNIT PO QAM (Reported) Fluoxetine (Fluoxetine) 40 Mg Capsule 40 MG PO QAM (Reported) Gabapentin (Gabapentin) 300 Mg Capsule 900 MG PO TID (Reported) Hydrochlorothiazide (Hydrochlorothiazide) 25 Mg Tablet 12.5 MG PO QAM Prescribed by: DOMINIK FIGUEROA DO Losartan Potassium (Cozaar) 50 Mg Tablet 100 MG PO HS Prescribed by: DOMINIK FIGUEROA DO Metoprolol Tartrate (Metoprolol Tartrate) 100 Mg Tablet 100 MG PO BID Take one pill in the morning and one at night. Prescribed by: DOMINIK FIGUEROA DO Morphine Sulfate ER (Morphine Sulfate ER) 15 Mg Tablet.er 30 MG PO QAM (Reported ) Morphine Sulfate ER (Morphine Sulfate ER) 15 Mg Tablet.er 15 MG PO HS (Reported ) Daily at 1900 Ropinirole (Ropinirole) 1 Mg Tablet 1 MG PO HS (Reported) As needed Albuterol HFA (Proair HFA) 8.5 Gm Hfa.aer.ad 2 PUFFS INHALATION Q4H PRN PRN For Shortness of Breath (Reported) Methocarbamol (Methocarbamol) 750 Mg Tablet 750-1,500 MG PO Q8 PRN PRN For Spasm (Reported) Nicotine 21 mg/24 hr Patch (Nicotine 21 mg/24 hr Patch) 1 Each Patch.dysq 1 PATCH TRANSDERM DAILY PRN PRN NICOTINE WITHDRAWAL (Reported) Polyethylene Glycol 3350 (Polyethylene Glycol 3350) 17 Gm Powd.pack 17 GM PO DAILY PRN PRN For Constipation (Reported) oxyCODONE-Acetaminophen 10-325 mg (oxyCODONE-Acetaminophen 10-325 mg) 1 Each Tablet 1 TABLET PO Q4H PRN PRN For Pain (Reported) Max. 5 tablets/day Additional med instructions Your blood pressure medications are as follows: Take your HCTZ 12.5mg and 100mg metoprolol in the mornings. Take your amlodipine 5mg, losartan 100mg, and 100mg metoprolol at night. Follow up with Dr. Alva with the recordings of your blood pressure cuff within the next week. Followup Plan Disposition: The patient was discharged in stable and improved condition with a new blood pressure regimen, treatment plan, and close follow up with Dr. Alva. Follow-up plan Take your new blood pressure regimen outlined above. Follow up with Dr. Alva within a week with your blood pressure results to see if further changes need to be made. Discharge Diet: Low fat, Low Sodium Discharge Activity: No restrictions Patient Instructions Take your new blood pressure regimen outlined above. Follow up with Dr. Alva within a week with your blood pressure results to see if further changes need to be made. Follow-up Provider: Celeste Alva MD Follow-up with PCP in: 1 week (BP check, possible HTN regimen change) Time spent Greater than 30 minutes was spent in preparation of discharge with greater than 50% of that time dedicated to patient counseling and coordination of care. . Attending Statement The patient was seen and examined together with Dr. Clay on 10/22/2016 and I agree with the history, exam and plan as outlined in the note above. . copies to: Celeste Alva MD, Jeffery S DO Oct 22, 2016 15:35 Roger Hinojosa MD Oct 23, 2016 06:01
== END 2016-10-22 16:00 | disposition home or self-care (01) | DRG 305 ==
LOC: SED 17:32 → MPC 23:20 → OBSVTOIN 23:20 → CCU 10-21 04:30 → PCC 10-21 17:55 → CCU 10-22 01:17
PROVIDERS: ADMIT Internal Medicine; ATTEND Internal Medicine
DX: I16.0 Hypertensive urgency (principal); F11.20 Opioid dependence, uncomplicated; J44.9 Chronic obstructive pulmonary disease, unspecified; F17.210 Nicotine dependence, cigarettes, uncomplicated; F12.90 Cannabis use, unspecified, uncomplicated; G62.9 Polyneuropathy, unspecified; M54.5 Low back pain; M54.2 Cervicalgia; G47.30 Sleep apnea, unspecified; Z91.81 History of falling; Z79.82 Long term (current) use of aspirin; Z86.73 Personal history of transient ischemic attack (TIA), and cerebral infarction without residual deficits; Z79.51 Long term (current) use of inhaled steroids

== ENCOUNTER 2016-10-28 12:12 | Emergency (ER) | payer MEDICARE ==
[~2016-10-28] VITALS: Ht 165.1 cm; Wt 79.5 kg
[~2016-10-28 12:12] MED LIST changes: +ALBU8.5H2 INHALATION; -ALBU8.5H4 IH; +AMLO5TAB2 PO; -ATEN25TA PO; +CHOL10008 PO; -CHOL100094 PO; -FLUO20CA25 PO; +FLUO40CA PO; +GABA-502 PO; -GABA600T2 PO; +LOSA50TA3 PO; +METO100T3 PO; +NICO1PAT16 TRANSDERM; +POLY17PO2 PO; +ROPI1TAB3 PO
[2016-10-28 12:20] VITALS: BP 183/76; PULSE 58; RESP 16; O2SAT 99
== END 2016-10-28 12:30 | disposition left against medical advice (07) ==
LOC: SED 12:12
DX: Z53.21 Procedure and treatment not carried out due to patient leaving prior to being seen by health care provider (principal)